=== PATIENT | female | born 1965 | race Two or more races ===

== ENCOUNTER → 2024-06-07 | Outpatient (CLI) | payer BC ==
[2024-06-07 08:52] LABS: Alanine Aminotransferase 24 U/L (7-40); Alkaline Phosphatase 120 U/L (46-116); Anion Gap 7 (5-15); BUN/Creatinine Ratio 11.1 (10.0-20.0); Blood Urea Nitrogen 8 mg/dL (9-23); Calcium 10.4 mg/dL (8.7-10.4); Carbon Dioxide 28 mmol/L (20-31); Chloride 106 mmol/L (98-107); Glucose 107 mg/dL (74-106); Potassium 3.5 mmol/L (3.5-5.1); Sodium 141 mmol/L (136-145)
[2024-06-07 08:53] LABS: LDL Cholesterol 81 mg/dL (< 100); Triglycerides 138 mg/dL (< 150)
[2024-06-07 08:54] LABS: Albumin 4.8 g/dL (3.2-4.8); Aspartate Aminotransferase 16 U/L (13-40); Cholesterol 156 mg/dL (< 200); Creatine Kinase IFCC 167 U/L (34-145); HDL Cholesterol 56 mg/dL (40-59)
[2024-06-07 08:55] LABS: Bilirubin, Total 0.4 mg/dL (0.2-1.0); Total Protein 7.6 g/dL (5.7-8.2)
== END | disposition home or self-care (01) ==
LOC: LAB 06:50
PROVIDERS: ATTEND Internal Medicine
DX: E78.5 Hyperlipidemia, unspecified (principal); R73.09 Other abnormal glucose; E55.9 Vitamin D deficiency, unspecified
CPT/HCPCS: 36415; 80053; 80061; 82306; 82550; 83036

== ENCOUNTER → 2024-10-30 | Outpatient (CLI) | payer BC ==
[2024-10-30 10:28] LABS: Alanine Aminotransferase 20 U/L (7-40); Alkaline Phosphatase 113 U/L (46-116); Anion Gap 10 (5-15); Aspartate Aminotransferase 15 U/L (13-40); BUN/Creatinine Ratio 18.3 (10.0-20.0); Blood Urea Nitrogen 13 mg/dL (9-23); Carbon Dioxide 25 mmol/L (20-31); Chloride 106 mmol/L (98-107); LDL Cholesterol 90 mg/dL (< 100); Potassium 3.5 mmol/L (3.5-5.1); Sodium 141 mmol/L (136-145); Triglycerides 96 mg/dL (< 150)
[2024-10-30 10:29] LABS: Bilirubin, Total 0.4 mg/dL (0.2-1.0); Calcium 10.8 mg/dL (8.7-10.4); Cholesterol 159 mg/dL (< 200); Creatine Kinase IFCC 140 U/L (34-145); Glucose 113 mg/dL (74-106); HDL Cholesterol 50 mg/dL (40-59); Total Protein 7.6 g/dL (5.7-8.2)
[2024-10-30 12:30] LABS: Free T4 (Free Thyroxine) 0.97 ng/dL (0.89-1.76)
[2024-10-30 12:31] LABS: T3 Total 1.31 ng/mL (0.60-1.81)
== END | disposition home or self-care (01) ==
LOC: LAB 09:10
PROVIDERS: ATTEND Internal Medicine
DX: E78.5 Hyperlipidemia, unspecified (principal); E55.9 Vitamin D deficiency, unspecified
CPT/HCPCS: 36415; 80053; 80061; 82306; 82550; 84439; 84443; 84480